=== PATIENT | male | born 1990 | race Caucasian/White ===

== ENCOUNTER 2016-12-06 07:37 | Emergency (ER) | payer OTHER ==
[~2016-12-06] VITALS: Ht 167.6 cm; Wt 77.1 kg
[~2016-12-06 07:37] MED LIST: AMOXICILLIN500 MG PO; CLARITIN10 MG PO; NAPROSYN500 MG PO; NKHM; PENICILLIN250 MG PO; TRAMADOL HCL50 MG PO; VOLTAREN50 M1 PO
[2016-12-26] MEDS ORDERED: Zofran4 MG PO (13:49)
[2016-12-26] MEDS ORDERED: LOMOTIL 0.025 M1 TA1 PO (16:24)
[2016-12-26] MEDS ORDERED: ZOFRAN ODT4 MG SL (16:24)
== END 2016-12-06 08:48 | disposition home or self-care (01) ==
LOC: ED 07:37
DX: S41.111A Laceration without foreign body of right upper arm, initial encounter (principal); S80.211A Abrasion, right knee, initial encounter; F17.200 Nicotine dependence, unspecified, uncomplicated; V89.2XXA Person injured in unspecified motor-vehicle accident, traffic, initial encounter; Y93.89 Activity, other specified; Y92.89 Other specified places as the place of occurrence of the external cause; Y99.9 Unspecified external cause status

== ENCOUNTER 2017-08-27 13:22 | Emergency (ER) | payer OTHER ==
[~2017-08-27] VITALS: Ht 167.6 cm; Wt 54.4 kg
[~2017-08-27 13:22] MED LIST changes: +LOMOTIL 0.025 M1 TA1 PO; +ZOFRAN ODT4 MG SL; +Zofran4 MG PO
[2017-08-27 13:40] LABS: BILIRUBIN NEGATIVE (NEGATIVE); BLOOD NEGATIVE (NEGATIVE); CLARITY CLEAR (CLEAR); COLOR STRAW (YELLOW); GLUCOSE NEGATIVE (NEGATIVE); KETONE NEGATIVE (NEGATIVE); LEUKO ESTERASE NEGATIVE (NEGATIVE); NITRITE NEGATIVE (NEGATIVE); SPECIFIC GRAVITY <= 1.005 (1.005-1.030); UROBILINOGEN 0.2 E.U./dl (0.2-1.0)
[2017-08-27 13:51] LABS: WBC 0-2 wbc/hpf (0-5)
== END 2017-08-27 14:34 | disposition home or self-care (01) ==
LOC: ED 13:22
PROVIDERS: Nurse Practitioner Family
DX: Z20.2 Contact with and (suspected) exposure to infections with a predominantly sexual mode of transmission (principal); R03.0 Elevated blood-pressure reading, without diagnosis of hypertension; F17.200 Nicotine dependence, unspecified, uncomplicated

== ENCOUNTER 2019-04-17 08:49 | Emergency (ER) | payer SELFPAY ==
[~2019-04-17] VITALS: Ht 167.6 cm; Wt 77.1 kg
[2019-04-17] MEDS ORDERED: ZOFRAN4 MG PO (10:08)
== END 2019-04-17 10:14 | disposition home or self-care (01) ==
LOC: ED 08:49
DX: R11.2 Nausea with vomiting, unspecified (principal); R10.9 Unspecified abdominal pain

== ENCOUNTER 2020-01-20 12:55 | Emergency (ER) | payer SELFPAY ==
[~2020-01-20] VITALS: Ht 165.1 cm; Wt 79.4 kg
[~2020-01-20 12:55] MED LIST changes: +ZOFRAN4 MG PO
== END 2020-01-20 13:48 | disposition home or self-care (01) ==
LOC: ED 12:55
DX: J10.1 Influenza due to other identified influenza virus with other respiratory manifestations (principal); F17.200 Nicotine dependence, unspecified, uncomplicated; Z79.899 Other long term (current) drug therapy

== ENCOUNTER → 2021-02-23 | Outpatient (CLI) | payer SELFPAY | END | disposition home or self-care (01) | LOC: COVID19 11:40 | PROVIDERS: ATTEND Internal Medicine | DX: U07.1 COVID-19 (principal) ==